=== PATIENT | female | born 1940 | race Caucasian/White ===

== ENCOUNTER 2018-03-01 11:45 | Day surgery (SDC) | payer OTHER ==
[~2018-03-01] VITALS: Ht 157.5 cm; Wt 48.5 kg
[~2018-03-01 11:45] MED LIST: BUPIVACAINE /DEX PF 0.75% SPINAL 2 ML AMP INJ ONE; BUPIVACAINE /PF 0.25% 30 ML VIAL INJ ONE; EPINEPHrine 1 MG/ML AMP IV ONE; LR 1,000 ML IV.SOLN IV ONE; LevALBUTEROL HCL 1.25 MG/0.5 ML *CONC.* VIAL.NEB (XOPENEX CONC.) INH ONE; MIDAZOLAM HCL 5 MG/5 ML VIAL IVP ONE; PROPOFOL 200MG/ 20ML VIAL (DIPRIVAN) IV ONE
[2018-03-01] MEDS ORDERED: LevALBUTEROL HCL 1.25 MG/0.5 ML *CONC.* VIAL.NEB (XOPENEX CONC.) INH ONE (11:51)
[2018-03-01] MEDS ORDERED: POLYMYXIN 500,000/BACIT.10,000 UNITS in NS IRR 1 L IR ONE (12:47)
[2018-03-01] MEDS ORDERED: LR 1,000 ML IV SCH (12:58)
[2018-03-01] MEDS ORDERED: HYDROmorphone 1 MG INJ. 1 MG/ML AMPUL IVP PRN (13:00)
[2018-03-01] MEDS ORDERED: HYDROmorphone 2 MG/ML VIAL IVP PRN ×2 (13:00)
[2018-03-01] MEDS ORDERED: MEPERIDINE HCL/PF 25 MG/ML DISP.SYRIN IVP PRN (13:00)
--- NOTE | 2018-03-01 16:20 | NUR ---
NOTE: RECEIVED REPORT FROM OR NURSE. PATIENT IN [facility]. PATIENT ON ROOM AIR WITH NO SHORTNESS OF BREATH. PATIENT SAID SHE STILL FEELS NUMB IN LEGS ALTHOUGH SHE CAN FEEL TOUCH. PATIENT SAID SHE IS STARTING TO FEEL PAIN BECAUSE HER FEELING IS COMING BACK. PATIENT NOT COMPLAINING OF NAUSEA OR VOMITING. DAUGHTERS AT BEDSIDE. CALL LIGHT IN REACH. WILL CONTINUE TO MONITOR.
--- NOTE | 2018-03-01 16:40 | NUR ---
: DR. JARA WAS PAGED BECAUSE PATIENT IS IN PAGE.
--- NOTE | 2018-03-01 17:15 | NUR ---
ATTENDING MD/SURGEON DR JARA WAS CALLED, DR ENG HOSPITAL TECHNICIAN RE: PAIN MEDS. SPOKE TO GONZALO
--- NOTE | 2018-03-01 17:27 | NUR ---
MD: DR. SOTELO CALLED BACK AND ORDERED 0.5 MG DILAUDID IVP ONCE AND 50 MG TRAMADOL PO IF PAIN GREATER THAN 4 40 MIN AFTER DILAUDID GIVEN.
[2018-03-01] MEDS ORDERED: HYDROmorphone 1 MG INJ. 1 MG/ML AMPUL IVP ONE (17:30)
--- NOTE | 2018-03-01 18:25 | NUR ---
NOTE: GAVE PATIENT PAIN MEDICATION. PATIENT SAID HER PAIN IS ABOUT 1. TRAMADOL NOT NEEDED FOR PATIENT. PATIENT STILL HASN'T VOIDED YET.
[2018-03-01] MEDS ORDERED: traMADol HCL HCL 50 MG TABLET (ULTRAM) PO ONE (18:30)
--- NOTE | 2018-03-01 18:46 | NUR ---
NOTE: PATIENT SAID SHE FELT LIKE SHE WET THE BED. HELPED PATIENT TO RESTROOM. PATIENT PEED IN TOILET. PATIENT SAID SHE IS ABLE TO FEEL EVERYTHING NOW AND HAS NO MORE NUMBNESS. PATIENT WAS CHANGED INTO [employer]. WILL GET PAPER WORK FOR DISCHARGE.
[2018-03-01 19:00] VITALS: BP_SYST 140
--- NOTE | 2018-03-01 19:45 | NUR ---
D/C Patient Patient given medication reconciliation form and D/C instructions. Exit Care provided. Patient verbalized understanding. MD discussed with patient the results and treatment provided. Ambulatory with steady gait for discharge to home. Patient in stable condition, ID band removed. IV catheter removed, intact and dressing applied, no active bleeding. Rx given. Patient educated on pain management. All belongings sent with patient. Patient being wheeled out by BROADCAST MAINTENANCE TECHNICIAN to front.
== END 2018-03-01 19:50 | disposition home or self-care (01) ==
LOC: SDS 11:45 → SMU 16:30 → SDS 19:50
PROVIDERS: ATTEND Orthopaedic Surgery
DX: S82.042A Displaced comminuted fracture of left patella, initial encounter for closed fracture (principal); W18.30XA Fall on same level, unspecified, initial encounter; Y93.9 Activity, unspecified; Y92.520 Airport as the place of occurrence of the external cause; Y99.9 Unspecified external cause status; Z88.8 Allergy status to other drugs, medicaments and biological substances; F17.200 Nicotine dependence, unspecified, uncomplicated
CPT/HCPCS: 27524; 76000; C1713 ×2; J0171; J1170; J2250; J2704; J3490 ×2; J7120; J7612

== ENCOUNTER 2019-01-22 08:03 | Day surgery (SDC) | payer BC ==
[~2019-01-22] VITALS: Ht 154.9 cm; Wt 47.6 kg
[2019-01-22] MEDS ORDERED: fentaNYL CITRATE/PF 100 MCG/2 ML AMP IVP PRN ×2 (08:30)
[2019-01-22] MEDS ORDERED: KETOROLAC TROMETHAMINE 30 MG VIAL IVP PRN (08:30)
[2019-01-22] MEDS ORDERED: ONDANSETRON HCL 4 MG/2 ML VIAL IVP PRN (08:30)
[2019-01-22] MEDS ORDERED: MIDAZOLAM HCL 5 MG/5 ML VIAL IVP ONE (09:45)
[2019-01-22] MEDS ORDERED: PROPOFOL 200MG/ 20ML VIAL (DIPRIVAN) IV ONE (09:45)
[2019-01-22] MEDS ORDERED: ONDANSETRON HCL 4 MG/2 ML VIAL IVP ONE (09:45)
[2019-01-22] MEDS ORDERED: fentaNYL CITRATE/PF 100 MCG/2 ML AMP IVP ONE (09:45)
[2019-01-22] MEDS ORDERED: WATER FOR IRRIGATION,STERILE 1,000 ML IRRIG.SOLN IR ONE (09:45)
[2019-01-22] MEDS ORDERED: BUPIVACAINE /EPINEPHRINE/PF 0.25% 30 ML VIAL INJ ONE (09:45)
[2019-01-22] MEDS ORDERED: SEVOFLURANE 15 MIN GAS INH ONE (09:45)
[2019-01-22] MEDS ORDERED: POLYMYXIN 500,000/BACIT.10,000 UNITS in NS IRR 1 L IR ONE (10:35)
[2019-01-22] MEDS ORDERED: fentaNYL CITRATE/PF 100 MCG/2 ML AMP ONE (11:55)
[2019-01-22 12:57] VITALS: BP_SYST 160
== END 2019-01-22 12:40 | disposition home or self-care (01) ==
LOC: SDS 08:03 → SMU 09:38 → SDS 12:40
PROVIDERS: ATTEND Orthopaedic Surgery
DX: T84.127A Displacement of internal fixation device of bone of left lower leg, initial encounter (principal); I10 Essential (primary) hypertension; J43.9 Emphysema, unspecified; D69.2 Other nonthrombocytopenic purpura; F41.9 Anxiety disorder, unspecified; E78.49 Other hyperlipidemia; Z88.5 Allergy status to narcotic agent; Z79.899 Other long term (current) drug therapy; F17.210 Nicotine dependence, cigarettes, uncomplicated; Y83.8 Other surgical procedures as the cause of abnormal reaction of the patient, or of later complication, without mention of misadventure at the time of the procedure
CPT/HCPCS: 20680; J2250; J2405; J2704; J3010; J3490